=== PATIENT | male | born 1960 | race Caucasian/White ===

== ENCOUNTER 2021-10-03 08:50 | Outpatient (CLI) | payer BC, SELFPAY ==
--- NOTE | ~2021-10-03 | CT_ITS ---
EXAMINATION: CTA chest PE protocol DATE: 10/03/2021 09:23 INDICATION: Chest pain TECHNIQUE: Computed tomography angiography (CTA) of the chest was performed with 100 mL Omnipaque-350 intravenous contrast timed to evaluate the pulmonary arteries. Coronal maximum intensity projection 3D-reconstructions were created by the technologist. The dose-length product (DLP) was 739.94 mGy-cm. Automated exposure control and iterative reconstruction technique were employed. COMPARISON: None. FINDINGS: The pulmonary arteries are well-opacified. No pulmonary embolism is identified. The lungs a re free of acute opacities. No pleural effusion or pneumothorax. No pathologically enlarged thoracic lymph nodes are identified. The heart size is normal. The gallbladder is surgically absent. There is mild thoracic spondylosis. IMPRESSION: 1. No pulmonary embolism or acute cardiopulmonary abnormality. Reviewed, dictated and finalized at location A.
[2021-10-03 09:27] LABS: Estimated Glomerular Filt Rate > 60
== END 2021-10-03 08:51 | disposition home or self-care (01) ==
LOC: ANHIMG 08:52
PROVIDERS: PCP Emergency Medicine; Visit Provider Emergency Medicine
DX: R07.9 Chest pain, unspecified (principal)
CPT/HCPCS: 71275; Q9967

== ENCOUNTER 2021-10-04 08:52 | Outpatient (CLI) | payer BC, SELFPAY ==
--- NOTE | 2021-10-04 | EST_ITS ---
Patient Info Name: Terell Choi Age: 61 years : 1960 Gender: Male Ht: 70 in Wt: 220 lbs BSA: 2.25 m2 HR: 70 bpm BP: 112 / 75 mmHg Heart Rhythm: Sinus Rhythm Exam Date: 10/04/2021 10:14 AM Exam Location: [facility] Stress Patient Status: Outpatient Admit Date: 10/04/2021 Staff Ordering Physician: Tez Rivera MD Attending Provider: Tez Rivera MD Exercise Technologist: Rosmery Jung CT Nurse: serge gallardo Exam Type: CA stress janae w NM Study Info Indications R06.02 - Shortness of breath R07.9 - Chest pain, unspecified A regadenoson stress test was performed. Summary 1. Sinus rhythm, borderline leftward axis. 2. No ST or T changes seen following Lexiscan injection. 3. Clinically and electrocardiographically unremarkable Lexiscan stress test. 4. Myocardial perfusion imaging exam to be reported by Radiology. Protocol: Lexiscan Stress ECG Details Stage: REST Duration (min): 0 min : 56 sec HR (bpm): 69 SBP (mmHg): 112 DBP (mmHg): 75 Stage: REST Duration (min): 7 min : 4 sec HR (bpm): 69 SBP (mmHg): 112 DBP (mmHg): 75 Stage: STAGE 1 Duration (min): 0 min : 59 sec HR (bpm): 100 SBP (mmHg): 116 DBP (mmHg): 74 Stage: RECOVERY Duration (min): 1 min : 0 sec HR (bpm): 85 SBP (mmHg): 116 DBP (mmHg): 74 Stage: RECOVERY Duration (min): 2 min : 0 sec HR (bpm): 84 SBP (mmHg): 116 DBP (mmHg): 74 Stage: RECOVERY Duration (min): 3 min : 0 sec HR (bpm): 84 SBP (mmHg): 113 DBP (mmHg): 73 Stage: RECOVERY Duration (min): 3 min : 23 sec HR (bpm): 80 SBP (mmHg): 113 DBP (mmHg): 73 Rest HR: 69 bpm Peak HR: 100 bpm Rest Sys BP: 112 mmHg Peak Sys BP: 116 mmHg Max Pred HR: 160 bpm % Max Pred HR: 63 % Target HR: 136 bpm Max RPP: 11,600 bpm*mmHg BP Response: Normal blood pressure response Termination Reason: Completed protocol Cardiac Symptoms: None Total Time: 1 min : 0 sec Rest Watters BP: 75 mmHg Peak Watters BP: 74 mmHg Total Dose: 0.4 mg Resting ECG Sinus rhythm, borderline leftward axis. Stress ECG No ST or T changes seen following Lexiscan injection. Report Signatures
--- NOTE | ~2021-10-04 | NM_ITS ---
EXAMINATION: NM janae stress w perfusion DATE: 10/04/2021 10:58 INDICATION: Chest pain and shortness of breath TECHNIQUE: Rest images were obtained following intravenous administration of 10.4 mCi Tc99m tetrofosm in (Myoview). The patient was infused intravenously with Lexiscan (Regadenoson). Then, 31.7 mCi Tc99m tetrofosmin (Myoview) was administered intravenously, and stress images were obtained. Data was olivia nstructed into short axis and horizontal and vertical long axis SPECT images. Gated SPECT images were also obtained. COMPARISON: None. FINDINGS: There is no definite reversible or fixed perfusion abnormality to suggest ischemia or infar ction. There is normal left ventricular chamber size, wall motion and ejection fraction. Left ventr icular ejection fraction measures 55%. IMPRESSION: 1. Normal myocardial perfusion at rest and during stress. 2. Left ventricular ejection fraction measuring 65%. Reviewed, dictated and finalized at location B.
== END 2021-10-04 08:53 | disposition home or self-care (01) ==
PROVIDERS: PCP Emergency Medicine; Visit Provider Emergency Medicine
DX: R07.9 Chest pain, unspecified (principal)
CPT/HCPCS: 78452; 93017; A9502; J2785

== ENCOUNTER 2021-10-23 07:35 | Outpatient (CLI) | payer BC, SELFPAY ==
--- NOTE | ~2021-10-23 | XR_ITS ---
EXAMINATION: XR UGIAC w kub DATE: 10/23/2021 08:11 INDICATION: Chest pain. TECHNIQUE: The patient drank thick barium, gas-producing crystals, and thin barium. Fluoroscopy of th e esophagus, stomach, and proximal small bowel was performed. Fluoroscopy exposure time was 0.5 minut es. The total number of images was 449. Total dose-area product was 4.467 Gy-cm^2. COMPARISON: Chest CT 10/03/2021 FINDINGS: There is no mass or stricture of the esophagus. Esophageal motility is normal. There is no hiatal hernia. There was no gastroesophageal reflux with provocative maneuvers. The stomach and proxi mal small bowel show normal folding patterns. IMPRESSION: 1. Normal upper gastrointestinal series. Reviewed, dictated and finalized at location A.
== END 2021-10-23 07:36 | disposition home or self-care (01) ==
PROVIDERS: PCP Emergency Medicine; Visit Provider Emergency Medicine
DX: R07.9 Chest pain, unspecified (principal)
CPT/HCPCS: 74246

== ENCOUNTER 2024-09-28 10:17 | Outpatient (CLI) | payer BC, SELFPAY ==
--- NOTE | ~2024-09-28 | CT_ITS ---
Non-contrast CT scan of the Abdomen Clinical indication: Incisional hernia Technique: 2.5 mm axial scans were obtained through the abdomen without intravenous or oral contrast . Dose reduction technique was used on this scan by utilizing automated exposure control and iterativ e reconstruction technique. The dose-length product (DLP) was 625.84 mGy-cm. Findings: Images through the lung bases reveal no abnormalities. The liver, spleen, pancreas, kidneys, and adrenals appear normal. Cholecystectomy clips are present. There are atherosclerotic calcifications of the aorta. . Visualized bowel loops are unremarkable. No ascites. Small fat-containing ventral hernia is present s uperior to the umbilicus. Impression: Small ventral fat-containing hernia, superior to the umbilicus. Reviewed, dictated and finalized at location M. Impression: Small ventral fat-containing hernia, superior to the umbilicus.
== END 2024-09-28 10:18 | disposition home or self-care (01) ==
LOC: MICIMG 10:18
PROVIDERS: PCP Surgery; Visit Provider Surgery
DX: K43.2 Incisional hernia without obstruction or gangrene (principal)
CPT/HCPCS: 74150

== ENCOUNTER 2024-10-13 08:51 | Outpatient (CLI) | payer BC, SELFPAY ==
--- OUTSIDE RECORDS SUMMARY | 2024-10-13 08:56 | XMS_ITS | Encounter Summary ---
Author Organization [facility] Address [address] [place] [id number] Care Team Providers Care Tank Setter Helper Name Role Phone Tez Rivera MD Primary Care Provider [phone] Encounter Details Date Type Department Care Team (Late st Contact Info) Description 10/30/2021 Abstract [facility] [address] Jerardo Wilkins MA Social History Tobacco Use Types Packs/Day Years Used Date Smoking Tobacco: Never Assessed Sex and Gender Information Value Date Recorded Sex Assigned at Not on file Legal Sex Male 3:55 PM CDT Gender Identity Not on file Sexual Orientation Not on file COVID-19 Exposure Response Date Recorded In the last 10 days, have yo u been in contact with someone who was confirmed or suspected to have Coronavirus/COVID-19? No / Unsure 10/31/2021 8:53 AM CDT documented as of this encounter Plan of Treatment Not on file documented as of this encounter Procedures Procedure Name Priority Date/Time Associated Diagnosis Comments FOLATE (OUTSIDE LAB) Routine 10/13/2021 CBC (OUTSIDE LAB) Routine 10/13/2021 VITAMIN B-12 Routine 10/13/2021 PROSTATE SPECIFIC ANTIGEN,TOTAL Routine 10/13/2021 IRON BINDING TEST Routine 10/13/2021 HEPATIC FUNCTION PANEL Routine 10/13/2021 IRON Routine 10/13/2021 FERRITIN Routine 10/13/2021 CBC (OUTSIDE LAB) Routine 08/04/2021 COMPREHENSIVE METABOLIC PANEL Routine 08/04/2021 documented in this encounter Results * PROSTATE SPECIFIC ANTIGEN,TOTAL (10/13/2021) PSA 0.85 10/13/2021 [facility]AT[facility] Final Result * FOLATE (OUTSIDE LAB) (10/13/2021) Pathologist [facility] FOLATE 8.9 10/13/2021 us Doc [facility] Abstract LAB-OUTSIDE/ABSTRACTED Final Result * VITAMIN B-12 (10/13/2021) Pathologist [facility] VITAMIN B12 S/P/B 503 10/13/2021 us Doc [facility] Final Result * CBC (OUTSIDE LAB) (10/13/2021) Pathologist [facility] WBC 6.2 HGB 15.7 HCT 46.6 PLT 204 10/13/2021 us Doc [facility] Abstract LAB-OUTSIDE/ABSTRACTED Final Result * HEPATIC FUNCTION PANEL (10/13/2021) Pathologist [facility] ALBUMIN S/P/B 4.2 3.5 - 5.0 ALKALINE PHOSPHATASE S/P/B 64 ALT 16 AST 14 BILIRUBIN DIRECT S/P/B 0.3 BILIRUBIN TOTAL S/P/B 1.8 TOTAL PROTEIN S/P/B 6.4 GLOBULIN 2.2 10/13/2021 us Doc [facility] Final Result * FERRITIN (10/13/2021) FERRITIN 255 10/13/2021 us Doc [facility] Final Result * IRON BINDING TEST (10/13/2021) IRON BINDING CAPACITY 250 10/13/2021 us Doc [facility] Final Result * IRON (10/13/2021) IRON 114 10/13/2021 us Doc [facility] Final Result * CBC (OUTSIDE LAB) (08/04/2021) WBC 6.4 HGB 17.2 HCT 50.9 PLT 235 08/04/2021 us Doc [facility] Abstract LAB-OUTSIDE/ABSTRACTED Final Result * (ABNORMAL) COMPREHENSIVE METABOLIC PANEL (08/04/2021) SODIUM S/P/B 139 POTASSIUM S/P/B 4.6 CO2 6.7 CHLORIDE S/P/B 103 GLUCOSE 78 mg/dL CALCIUM S/P/B 9.8 BUN 14 CREATININE S/P/B 0.86 0.7 - 1.3 EGFR AFR. AMER. 110(A) <=90 EGFR NON-AFR. AMER. 95(A) <=90 ALKALINE PHOSPHATASE S/P/B 66 ALT 12 AST 12 BILIRUBIN TOTAL S/P/B 3.0 ALBUMIN S/P/B 4.5 3.5 - 5.0 TOTAL PROTEIN S/P/B 6.7 GLOBULIN 2.2 08/04/2021 us Doc [facility] Final Result documented in this encounter Visit Diagnoses Not on filedocumented in this encounter Care Teams Tank Setter Helper Relationship Specialty Start Date End Date Tez Rivera MD PCP - General FAMILY PRACTICE 10/25/21 documented as of this encounter
--- OUTSIDE RECORDS SUMMARY | 2024-10-13 08:56 | XMS_ITS | Clinical Summary ---
Author Organization [facility] Address [address] [place] [address] Care Team Providers Care Lockstitch Lining Setter Name Role Phone Francisco Morgan MD Primary Care Provider [phone] Source Comments [facility],non-owned Affiliates and Associated Physician Practices is amultiple site organization consisting of ambulatory clinics and hospital sitesin [place], [place], [place] and [place]. This disclosure is being madepursuant to the Care Everywhere program and may not contain all information available regarding this patient. Last updated 18.[facility] Allergies No known active allergies Medications * Be aware that medications may not be up to date on this document. Alwaysverify current medications with the patient. propranolol (INDERAL) 20 MG tabletIndication s:Migraine without aura and without status migrainosus, not intractable Take 1 tablet by mouth 2 times daily 60 tablet 5 10/27/2019 Active Active Problems No known active problems Social History Tobacco Use Types Packs/Day Years Used Date Smoking Tobacco: Every Day Smokeless Tobacco: Never Alcohol Use Standard Drinks/Week Comments Yes 0 (1 standard drink = 0.6 oz pur e alcohol) Sex and Gender Information Value Date Recorded Sex Assigned at Not on file Legal Sex Male 2:30 PM CDT Gender Identity Not on file Sexual Orientation Not on file Last Filed Vital Signs Vital Sign Reading Time Taken Comments Blood Pressure 135/89 10/27/2019 10:55 AM CDT Pulse 82 10/27/2019 10:55 AM CDT Temperature 36.2 C (97.1 F) 10/27/2019 10:55 AM CDT Respiratory Rate - - Oxygen Saturation 98% 10/27/2019 10:55 AM CDT Inhaled Oxygen Concentration - - Weight 98.4 kg (217 lb) 10/27/2019 10:55 AM CDT Height 177.8 cm (5' 10) 10/27/2019 10:55 AM CDT Body Mass Index 31.14 10/27/2019 10:55 AM CDT Plan of Treatment Health Maintenance Due Date Last Done Comments COLOGUARD (AGES 45-75) - COL ON CA SCREENING 1960 COLON MONITORING 1960 COLONOSCOPY - COLON CA SCREENING 1960 CT COLONOGRAPHY - COLON CA SCREENING 1960 Colorectal Cancer Screening 1960 FIT - COLON CA SCREENING 1960 FLEX SIG - COLON CA SCREENING 1960 LIPID TESTING 1960 HIV SCREENING 1976 HEPATITIS C SCREENING 09/24/1979 DTAP/TDAP/TD VACCINES (1 - Tdap) 1980 PNEUMOCOCCAL VACCINE 50+ (1 of 1 - PCV) 09/29/2011 ZOSTER VACCINE (1 of 2) 09/29/2011 SCREENING FOR DIABETES 10/27/2019 COVID-19 VACCINE (1 - 2023-2 5 season) 2023 DEPRESSION SCREENING 04/14/2024 INFLUENZA VACCINE (Season Ended) 2024 Respiratory Syncytial Virus (RSV) Vaccine Pt: or over 60 yrs (1 - 1-dose 75+ series) 2036 HEPATITIS B VACCINE Aged Out No longe r eligible based on patient's age to complete this topic HIB VACCINE Aged Out No longer eligi ble based on patient's age to complete this topic HPV VACCINE Aged Out No longer eligi ble based on patient's age to complete this topic MENINGOCOCCAL (Group B) VACC INE SHARED DECISION-MAKING Aged Out No longer eligibl e based on patient's age to complete this topic MENINGOCOCCAL GROUPS A/C/Y/W VACCINE Aged Out No longer eligible b ased on patient's age to complete this topic Insurance ANTHEM Care Teams Lockstitch Lining Setter Relationship Specialty Start Date End Date Francisco Morgan MD [address] [place] [address] [address] [place] [address] PCP - General 10/25/19
--- OUTSIDE RECORDS SUMMARY | 2024-10-13 08:56 | XMS_ITS | Clinical Summary ---
Author Organization [facility] Address [address] [place] [id number] Care Team Providers Care Education Administrator Name Role Phone Tez Rivera MD Primary Care Provider [phone] Allergies No known active allergies Medications No known medications Active Problems Problem Noted Date Diagnosed Date Tobacco use disorder 11/01/2021 Syncope 11/01/2021 Cardiomegaly 04/27/2019 Essential hypertension 04/15/2019 Family History Medical History Relation Comments Lung Cancer Father CAD Mother Heart Attack Mother Hypertension Mother Lung Cancer Paternal Grandfather Relation Status Comments Brother Alive Father Maternal Grandfather Maternal Grandmother Mother Paternal Grandfather Paternal Grandmother Sister Alive Social History Tobacco Use Types Packs/Day Years Used Date Smoking Tobacco: Every Day Cigarettes Smokeless Tobacco: Current Snuff Alcohol Use Standard Drinks/Week Comments Not Currently 0 (1 standard drink = 0.6 oz pur e alcohol) 4-5 beers a month Sex and Gender Information Value Date Recorded Sex Assigned at Not on file Legal Sex Male 3:55 PM CDT Gender Identity Not on file Sexual Orientation Not on file Last Filed Vital Signs Vital Sign Reading Time Taken Comments Blood Pressure 120/70 10/31/2021 9:01 AM CDT Pulse 77 10/31/2021 9:01 AM CDT Temperature - - Respiratory Rate - - Oxygen Saturation - - Inhaled Oxygen Concentration - - Weight 101.6 kg (224 lb) 10/31/2021 9:01 AM CDT Height 177.8 cm (5' 10) 10/31/2021 9:01 AM CDT Body Mass Index 32.14 10/31/2021 9:01 AM CDT Plan of Treatment Health Maintenance Due Date Last Done Comments Colorectal Cancer Screening Colonoscopy (10 Years) 1960 Annual Physical 1964 Hepatitis C 09/29/1979 DTaP, Tdap and Td Vaccines (1 - Tdap) 1980 Pneumococcal Vaccine: 50+ Years (1 of 2 - PCV) 1980 Zoster Vaccines (1 of 2) 09/29/2011 COVID-19 Vaccine (3 - season) 2023 12/09/2020, 12/09/2020, 11/18/2020, Additional history exists RSV Immunization or 60+ Years (1 - 1-dose 75+ series) 2036 Meningococcal B Vaccine Aged Out No l onger eligible based on patient's age to complete this topic Meningococcal Vaccine Aged Out No yunior joseph eligible based on patient's age to complete this topic RSV Immunizations Under 20 Months Aged Out No longer eligible based on patient's age to complete this topic Insurance Care Teams Education Administrator Relationship Specialty Start Date End Date Tez Rivera MD PCP - General FAMILY PRACTICE 10/25/21
--- NOTE | 2024-10-13 09:32 | ECG_ITS ---
Test Date: 2024-10-13 09:41:41 Measurements Intervals [place] Rate: 66 P: 57 AR: 186 QRS: 32 QRSD: 105 T: 48 QT: 371 QTc: 391 Interpretive Statements SINUS RHYTHM NORMAL ELECTROCARDIOGRAM No previous ECG available for comparison Electronically Signed On 10-13-2024 12:53:16 CDT by Bobo Ray M.D.
== END 2024-10-13 08:52 | disposition home or self-care (01) ==
LOC: ANHLAB 08:53
PROVIDERS: PCP Emergency Medicine; Visit Provider Anesthesiology
DX: K43.2 Incisional hernia without obstruction or gangrene (principal); F17.210 Nicotine dependence, cigarettes, uncomplicated; Z01.818 Encounter for other preprocedural examination
CPT/HCPCS: 36415; 86850; 86900; 86901; 93005

== ENCOUNTER 2024-10-14 01:52 | Day surgery (SDC) | payer BC, SELFPAY ==
[2024-10-11 13:01] VITALS: BMI 31.6
--- NOTE | 2024-10-11 13:09 | PC.NURSE ---
Report to the Outpatient Waiting Room, entrance under the green pavilion located off [facility], at time _0600_ on date _[id number]_. Planned Procedure Time: _0730_.? Time changes happen often and if your time is changed the preop area will call you the afternoon before. - You and your visitor will be asked to self-screen and do not enter if you have any COVID symptoms. Please call surgeon if you need to reschedule. - A mask is optional within the hospital at this time. Patients may have clear liquids (water, carbonated beverages, clear teas, apple juice) until 3 hours prior to surgery with a maximum of 20 ounces. - No food from midnight until time of surgery and no smoking, or chewing tobacco (or any form of nicotine). No chewing gum, candy or mints. Take only the following medications with a SIP of water on the morning of surgery: ___None____ DO NOT STOP ANY OF YOUR OTHER PRESCRIPTION MEDICATIONS PRIOR TO SURGERY EXCEPT THE FOLLOWING Hold all vitamins and supplements for 3 days per anesthesiologist. Medications to discontinue per physician Date to take last dose Please no make-up, nail pashto, hairspray, perfume, deodorant, or body powder the day of surgery.? No jewelry (including any body piercings) or valuables the day of surgery, leave them at home.? Please take a shower or bath the night before, or the morning of, surgery with an antibacterial soap.? Wear comfortable, loose fitting clothing.? - Jewelry must be removed prior to entering the operating room.? Rings and piercings that are not removed may be cut off. - The hospital will not accept responsibility for valuables.? - Please leave all valuables, including medications, at home the day of surgery. If you are going home after surgery, a licensed hi lo driver must drive you home.? - NO public transportation without another adult if you receive anesthesia. - We recommend that an adult stay with you for 24 hours following discharge. - We also recommend that you do not drive, make important decision, drink alcoholic beverages, or take any drugs that were not prescribed by your health care provider for at least 24 hours after your discharge time. Follow any additional instructions given to you from your surgeon. Telephone instructions given to ___Alan__and asked if any additional questions and then verbalized understanding. Patient advised to call surgeon office or pre surgery nurse liaison [phone] if any additional questions.
[2024-10-14] VITALS (14 sets, daily range): BP systolic 101–153; BP diastolic 45–87; PULSE 47–70; RESP 12–18; TEMP 36.8–37.2; O2SAT 94–100; BMI 31.8
--- OUTSIDE RECORDS SUMMARY | 2024-10-14 01:55 | XMS_ITS | Continuity of Care Document ---
Author Organization [facility] Address [address] [place] [address] [place] [address] Phone Care Team Providers Care Bushler Name Role Phone Tez Rivera MD Unavailable Unavailable Allergies, Adverse Reactions, Alerts Substance Reaction Status Criticality No Known Allergies Active No Inform ation Procedures Procedure Date OFFICE/OUTPATIENT VISIT, EST PREV VISIT, EST, AGE 40-64 OFFICE/OUTPATIENT VISIT, EST OFFICE/OUTPATIENT VISIT, EST OFFICE/OUTPATIENT VISIT, EST OFFICE/OUTPATIENT VISIT, EST PREV VISIT, NEW, AGE 40-64 OFFICE/OUTPATIENT VISIT, NEW Advance Directives Directive Yes / No Effective Date File Name No Information Encounters Encounter Description Practice Location Reason(s) For Visit Diagnoses Date Provider Providers Copied on Encounter OFFICE/OUTPA TIENT VISIT, EST [facility], [address] [place], [id number], [place] tel:[phone] [facility] abdominal pain1 (chief complaint) Ventral hernia 5 Miguel Reagan. [address], [place], [place], [address] , [place]. tel:[phone] PREV VISIT, EST, AGE 40-64 [facility], [address], [place], [place], [address], [place] tel:[phone] [facility] physical (chief complaint) Encounter for general adult medical examination without abnormal findings 5 Miguel Reagan. [address], [place], [place], [address] , [place]. tel:[phone] OFFICE/OUTPA TIENT VISIT, [facility], [address], [place], [place], [address], [place] tel:[phone] [facility] back pain1 (chief complaint) Muscle spasm of backChange in bowel habitTobacco use 3 Miguel Yan [address], [place], [place], [address] , [place]. tel:[phone] OFFICE/OUTPA TIENT VISIT, [facility], [address], [place], [place], [address], [place] tel:[phone] [facility] chest pain1 (chief complaint) abd pain1 (chief complaint) sinus1 (chief complaint) Acute sinusitisLower abdominal painAnt chest-wall painChange in bowel habit 3 Miguel Yan [address], [place], [place], [address] , [place]. tel:[phone] OFFICE/OUTPA TIENT VISIT, [facility], [address] [place], [address], [place] tel:[phone] [facility] high bili (chief complaint) chest pain1 (chief complaint) polycythem ia1 (chief complaint) abd pain1 (chief complaint) Lower abdominal painDisorder of bilirubin metabolism, unspecifiedChest painSecondary polycythemiaChange in bowel habit 2 Miguel Yan [address], [place], [place], [address] , [place]. tel:[phone] OFFICE/OUTPA TIENT VISIT, [facility], [address] [place], [address], [place] tel:[phone] [facility] chest pain1 (chief complaint) abd pain1 (chief complaint) bili (chief complaint) polycyther mia1 (chief complaint) fatigue1 (chief complaint) Chest painDyspneaSecondar y polycythemiaLower abdominal painDisorder of bilirubin metabolism, unspecifiedFatigue 2 Miguel Reagan. [address], [place], [place], [address] , [place]. [phone] PREV VISIT, NEW, AGE 40-64 [facility], [address], [place], [place], [address], [place] tel:[phone] [facility] physical (chief complaint) Encounter for general adult medical exam w abnormal findingsChest painDyspneaEssentia l (primary) hypertensionSeconda ry polycythemia 2 Miguel Reagan. [address], [place], [place], [address] , [place]. tel:[phone] Family History Family Member Type Diagnosis Age At Onset Mother Problem Coronary artery disease 49 Mother Problem 71 dementia Mother Problem Hypertension Father Problem Alive and well Father Problem 72 lung CA Brother Problem Alive and well Payers Payer name Insurance type Covered republican ID Authorrobert navarrokenzie(s) [facility] CI [id number] Social History Type Description Quantity Date Captured Comments Alcohol Use Details beer 4 glasses socially 025 Caffeine Use Details coffee 4 cups per day Tobacco Use Status Moderate cigarette smoker (10-19 cigs/day) Smoking Status Current every day smoker Sex Male Vital Signs Date / Time: Height Weight BMI Pulse Rate Blood Pressure Temperature Respiratory Rate Body Surface Area Head Circumference BMI percentile Pulse Ox Inhaled Ox 5:29 PM 70.00 in 223.40 lbs 32.0 5 kg/m eter (2) 73 /min 120/80 mm[Hg] 98.0 F 16 /min Chief Complaint And Reason For Visit From encounter dated '09/13/2024 17:25'. abdominal pain1 (chief complaint). Description: Pt was lifting heavy garage door this morning and he notices acute onset of midepigastric pain, bulging and burning sensation Pt denies any nausea, vomiting, diarrhea or constipation Pt denies any bruising. Pt is able to reduce the bulge with pressurebut it comes back out again on its own. Pt denies any nausea, vomiting. Plan Of Treatment Date Type Action Status Referral Referred To: Warner Granado [address] [place], [phone] Ordered: Referrals: Warner Granado. Evaluate and treat ordered Referral Ordered: CT ABD & PELVIS W/O CONTRAST ordered Referral Ordered: COLONOSCOPY AND BIOPSY ordered Referral Ordered: Cardiology (related to Chest pain) ordered Referral Ordered: SLEEP STUDY, ATTENDED ordered Referral Ordered: UPPER GI W/ KUB ordered Referral Ordered: Referrals: Cardiology. Evaluate and treat ordered Referral Ordered: CARDIOVASCULAR STRESS TEST ordered Referral Ordered: CT PULMONARY ordered History Of Present Illness Encounter Date Complaint History Of Prese nt Illness abdominal pain1 Pt was lifting h eavy garage door this morning and he notices acute onset of midepigastric pain, bulging and burning sensation Pt denies any nausea, vomiting, diarrhea or constipation Pt denies any bruising. Pt is able to reduce the bulge with pressure but it comes back out again on its own. Pt denies any nausea, vomiting. physical Pt needs annual physical pt c/o acute onset of productive and hacking cough since this morning Pt feels some chest burning sensation when he inhales cold air. Pt denies any sinus symptoms or ear pain pt denies any sore throat pt denies any sob. Pt is not uptodate with COVID booster, flu and RSV vaccine Pt denies any fever, chill. Pt denies any other complaints back pain1 Pt c/o acute ons et of low back muscle spasm since 3-4 days ago pt denies any injury. Pt denies any sciatica or any loss of bowel or bladder control or saddle area paresthesia. Pt has history of intermittent low back pain with occasional flare up. Pt c/o sharp pain around low back area. Pt denies any abd pain or urinary symptoms Pt denies any night time pain Pt notices more pain when he stands up from sitting position or positional change. Pt denies any fever or flank pain Pt states that in the past, he responded well to low dose muscle relaxant. chest pain1 Pt has history o f exertional sob and chest pain Pt had negative cardiac stress test and chest Ct Pt saw cardiology and was cleared Pt has not had much above symptoms. He denies any GERD. He had normal upper GI study sinus1 Pt c/o severe si nus congestion, purulent sinus drainage, postnasal drainage, mild cough for one week Pt denies any sore throat or ear pain Pt failed OTC meds Pt denies any sob or fever or chest pain abd pain1 pt states that h is abdominal pain resolved with abx and he did not do CT scan or colonoscopy Pt denies any bowel change or blood in stool abd pain1 Pt c/o acute ons et of cramp pain periumbilical area and he feels something twisting inside of his abdomen for two days. Pt denies any nausea, vomiting, blood in stool, early satiety, loss of appetite, etc. Pt does notice change of consistency of stool x 2 weeks. Pt notices constipation vs diarrhea intermittent and he notices change of shape of his stool as well. he denies any blood in stool. He denies any fever, chill polycythemia1 His polycythemia resolved. Iron and ferritin ok. Pt denies any fatigue. Pt did not do sleep study. Pt denies any snoring chest pain1 Pt denies any ch est pain. Pt had negative cardiac stress test and he saw cardiology and was cleared. high bili Pt has high bili . He denies any jaundice. abd pain1 Pt c/o left side abdominal pain since two months ago and he was given omeprazole for only 4 days and he has not had any abdominal pain since. Pt also had abdominal and pelvic CT several weeks ago by previous PCP which was normal per patient. Pt denies any GERD. pt denies any change o bowel or weight loss, early satiety. fatigue1 Pt feels fatigue . Pt denies any snoring. polycythermia1 Pt has history o f polycythemia. REpeat lab is ok now bili Pt has high bili doe on lab from ER. Pt denies any abd pain or jaundice. chest pain1 Pt has intermitt ent chest pain/pressure with sob and fatigue since two weeks ago. Pt had negative CTA pulmonary and lexiscan cardiac stress test recently for above. pt denies any chest pain or pressure currently. pt still feels some chest pressure and sob with any physical activity since two weeks ago. Pt denies any calf pain physical Pt needs annual physical Pt c/o acute onset of chest pressure around [facility] area since last . Pt was running around while at work. Pt also felt some mild sob along with chest pressure. Pt just overall did not feel well and he briefly lost consciousness for several seconds and woke up feeling slightly dizzy and disoriented and he was transferred to Er via ambulance. Pt denies any speech issue or neurological weakness. pt had EKG and BG testing and BP check at ER which were all ok pre patient. Pt denies any headache, nausea, diaphoresis. Pt denies any risk for heat stroke. He did drink water in the morning. Pt was sightly orthostatic in hospital and he received IV fluid. Pt had negative head CT and neck CT and chest x ray. he also had cardiac echo done but he does not know the result. He was told that he will do cardiac stress test, home holter monitor and carotid doppler while inpatient but for some reason none got done and patient got frustrated and left the hospital. Pt currently feels fatigue, chest pressure and some mild sob still, especially if he physically exerting himself. Instructions Date Instruction Additional Infor yadira No Information Assessments Type Assessment Date assessment Ventral hernia Mental Status Date Cognitive Assessment Orientation - [place] ed to time, place, person, situation.
--- OUTSIDE RECORDS SUMMARY | 2024-10-14 01:55 | XMS_ITS | Encounter Summary ---
Author Organization [facility] Address [address] [place] [address] Care Team Providers Care Tree Cutter Name Role Phone Tez Rivera MD Primary Care Provider [phone] Encounter Details Date Type Department Care Team (Late st Contact Info) Description 10/30/2021 Abstract [facility] [address] Jerardo Wilkins MA Social History Tobacco Use [...] Result * FOLATE (OUTSIDE LAB) (10/13/2021) Pathologist [facility] FOLATE 8.9 10/13/2021 us Doc [facility] Abstract LAB-OUTSIDE/ABSTRACTED Final Result * VITAMIN B-12 (10/13/2021) Pathologist [facility] VITAMIN B12 S/P/B 503 10/13/2021 us Doc [facility] Abstract LABORATORY Final Result * CBC (OUTSIDE LAB) (10/13/2021) Pathologist [facility] WBC 6.2 HGB 15.7 HCT 46.6 PLT 204 10/13/2021 us Doc [facility] Abstract LAB-OUTSIDE/ABSTRACTED Final Result * HEPATIC FUNCTION PANEL (10/13/2021) Pathologist [facility] ALBUMIN S/P/B 4.2 3.5 - 5.0 ALKALINE [...] on filedocumented in this encounter Care Teams Tree Cutter Relationship Specialty Start Date End Date Tez Rivera MD PCP - General FAMILY PRACTICE 10/25/21 documented as of this encounter
--- OUTSIDE RECORDS SUMMARY | 2024-10-14 01:55 | XMS_ITS | Clinical Summary ---
Author Organization [facility] Address [address] [place] [address] Care Team Providers Care Collar Padder Blindstitch Name Role Phone Tez Rivera MD Primary Care Provider [phone] Allergies No known active allergies Medications No [...] to complete this topic Insurance Care Teams Collar Padder Blindstitch Relationship Specialty Start Date End Date Tez Rivera MD PCP - General FAMILY PRACTICE 10/25/21
--- OUTSIDE RECORDS SUMMARY | 2024-10-14 01:55 | XMS_ITS | Clinical Summary ---
Author Organization [facility] Address [address] [place] [address] Care Team Providers Care Inventory Transcriber Name Role Phone Francisco Morgan MD Primary Care Provider [phone] Source Comments [facility],non-owned Affiliates and Associated Physician Practices is amultiple site organization consisting of ambulatory clinics and hospital sitesin [place], [place], [place] and [place]. This disclosure is being madepursuant to the Care Everywhere program and may not contain all information available regarding this patient. Last updated 18.[facility] Allergies No known active allergies Medications * [...] complete this topic Insurance ANTHEM Care Teams Inventory Transcriber Relationship Specialty Start Date End Date Francisco Morgan MD [address] [place] [address] [address] [place] [address] PCP - General 10/25/19
[2024-10-14] MEDS: LACTATED RINGERS 1,000 ML 30 ML IV CONT ×3 (06:30→11:47)
[2024-10-14] MEDS: ACETAMINOPHEN 500 MG TABLET 1000 MG PO (06:48)
[2024-10-14] MEDS: KETOROLAC 15 MG/ML VIAL (*BKC) IV PUSH (06:48)
--- NOTE | 2024-10-14 07:15 | P.PNAN_ITS ---
Anes - Initial Pre Proc Eval Procedure: Operation Date: 10/14/24 07:30 Proposed Procedures p Robotic Assisted Incisional Epigastric Hernia Repair With Mesh - Peggy Celestin MD Date/Time: 10/14/24 07:15 Surgeon: Peggy Celestin MD Pre Op Diagnosis: incisional epigastric hernia Patient Data Age: 64 Gender: M Height: 1.78 m Weight: 100.8 kg Last Vital Signs Temp 37.2 C 10/14/24 06:00 Pulse 70 10/14/24 06:00 Resp 16 10/14/24 06:00 BP 135/80 10/14/24 06:00 Pulse Ox 100 10/14/24 06:00 O2 Del Method Room Air 10/14/24 06:00 Allergies Allergy/AdvReac Type Severity Reaction Status Date / Time No Known Allergies Allergy Verified 10/14/24 06:38 Home Medications ?Medication ?Instructions ?Recorded ?Confirmed ?Type No Home Medications 09/22/24 10/11/24 History Patient hx anesthesia problems: none Family hx anesthesia problems: none Results Review: All pre-operative results and documents have been reviewed as part of the pre- operative evaluation. [facility] Past Medical History Medical History Headache Gallbladder disorder Surgical History Surgical History Hx laparoscopic cholecystectomy Family History Family History Father Lung cancer Grandparent Lung cancer Mother Heart disease Hypertension Social History Social History Years smoked: 40 Smoking status: Current every day smoker Tobacco type: cigarettes Smokeless tobacco user: chewing tobacco Alcohol intake: current Drinks per week: 4 Substance use: never Substance use type: does not use Do You Feel Safe in your Home?: Yes Lack of Transportation: No Lack of Food: Never True Current Housing: I Have Housing Concerned About Future Housing: No Difficulty Paying Gas/Electric Bills: No Difficulty Paying for Meds: No Currently Unemployed: No Education: Bachelor's Degree Difficulty w/ Childcare or Family Care: No Living arrangements: with family Occupation/Education: occupation Spiritual care concerns: No Agree to blood products: Yes Anes - Eval Final PreProcedure Day of Procedure 10/14/24 07:15 Patient weight: obese Heart: regular rate and rhythm Lungs: clear to auscultation Airway: Mallampati scale class II Neurological: alert and oriented Last oral intake: >/= 8 hours ASA classification: III Emergent: no Anesthetic plan: proceed Anesthesia type and monitoring: general ETT and standard monitoring Results Review: All pre-operative results and documents have been reviewed as part of the pre- operative evaluation. Informed Consent: The patient's anesthetic plan and its attendant risks and benefits were discussed with the patient/family/POA. Questions were solicited and answers provided to the satisfaction of the patient/family/POA.
--- NOTE | 2024-10-14 07:19 | WPDHPUPDATE1 ---
History and Physical Update Update Date/Time: 10/14/24 07:19 History and Physical has been reviewed, including an updated exam of the patient. There are NO changes in the patient's condition. Risks, benefits, and alternatives have been discussed and questions answered. Patient agrees to proceed with procedure.
[2024-10-14] MEDS: ceFAZolin 2 GM/D5W 50 ML 2 GM/50 ML BAG IVPB (07:25)
--- NOTE | 2024-10-14 08:42 | W.PM.PROC2 ---
Procedure Note - Detailed Date of Procedure 10/14/24 Pre-op Diagnosis incarcerated incisional epigastric hernia measuring 3 cm Post-op Diagnosis Same Procedure Performed robotic assisted repair incarcerated incisional epigastric hernia measuring 3 cm with mesh Surgeon Peggy Celestin MD Anesthesia General and Local Indications 64-year-old male presenting to the office with a incisional epigastric hernia. Patient reports slow enlargement in size and reports area is tender to palpation. Findings 3 cm incisional hernia in the epigastric region, incarcerated with omentum Description of Procedure The patient was taken the operating room and placed in the supine position. After adequate induction of general anesthesia, the patient was prepped and draped in the normal sterile fashion. A time-out was then done to patient's identity, as well as the procedure being. I began by making a 8 mm incision left upper quadrant. A Veress needle was placed in the peritoneal cavity and CO2 gas was then insufflated. After adequate pneumoperitoneum was achieved, the Veress needle was removed and an 8 mm Optiview trocar was placed through this incision. Once confirmed in the abdominal cavity, the trocar was removed and the laparoscoped was placed through the port site. I was able to identify the hernia in the epigastrium this point. There was noted to be incarcerated omentum within the hernia. Under direct visualization, I placed a further 8 mm port in the left mid abdomen, as well as an additional 8 mm port in the left lower. The patient was properly positioned and the robot was docked to these 3 port sites. I then went to the robotic console. I began by reducing the omentum out of the hernia. Once completely reduced, this left an approximately 3 cm defect. I then took down the falciform ligament superiorly to allow placement of the mesh. I then proceeded to closed the defect with a 0 Stratafix suture. I then placed a 15 x 10 cm Ventralight mesh in the underlay position to reinforce the repair. This was sutured in circumferentially with 2 0 V lock suture. There was noted to be good wide local coverage of the defect. The mesh was noted to be tension-free and in good position. At this point all needles were removed. The robot was then undocked. All port sites were then removed. The 3 port sites were closed with 4-0 Monocryl subcuticular suture. Dermabond was placed on all wounds. The patient tolerated the procedure well and was extubated postoperatively. He will be transferred to the recovery room in stable condition. Implants 15 x 10 cm Ventralight mesh Estimated Blood Loss 10 Pathology None sent Complications No immediate complications Condition Stable Disposition PACU [facility] Billing Surgery - Charge Forward: Surgery Billing
[2024-10-14] MEDS: fentaNYL CITRATE INJ (*CRX) 100 MCG/2 ML VIAL 25 MCG IV PUSH ×8 (08:43→10:15)
[2024-10-14] MEDS: oxyCODONE HCL (*CRX) 5 MG TAB IR PO ×2 (09:40→10:30)
[2024-10-14] MEDS: ONDANSETRON INJ 4 MG/2 ML VIAL IV PUSH (09:40)
[2024-10-14] MEDS: SCOPOLAMINE 1 MG PATCH 1 PATCH TRANSDERM (11:47)
== END 2024-10-14 13:45 | disposition home or self-care (01) ==
PROVIDERS: PCP Emergency Medicine; Visit Provider Surgery
PROC: (CPT 49594; principal; 2024-10-14 07:30)
DX: K43.0 Incisional hernia with obstruction, without gangrene (principal); F17.210 Nicotine dependence, cigarettes, uncomplicated; F17.220 Nicotine dependence, chewing tobacco, uncomplicated; E66.9 Obesity, unspecified; Z68.31 Body mass index [BMI] 31.0-31.9, adult
CPT/HCPCS: 49594; S2900; A9270; J0690; J1200; J1596; J1885; J2003; J2250; J2405; J2704; J2710; J3010; J7030; J7120